=== PATIENT | female | born 1990 | race Caucasian/White ===

== ENCOUNTER 2019-11-02 05:59 | Emergency (ER) | payer OTHER, SELFPAY ==
--- NOTE | 2019-11-02 06:43 | EDPHYS ---
Physician Documentation [facility] Name: Tenisha Blanca Age: 29 yrs Sex: Female : 1990 Arrival Date: 11/02/2019 Time: 06:01 Bed 7 Private MD: ED Physician Pato Ricks HPI: 11/02 06:13 This 29 yrs old Female presents to ER via Ambulatory with complaints of Back kb Pain, Chest Tightness. 06:13 The patient or guardian reports chest pain that is located primarily in the chest kb diffusely. The pain radiates to back. Associated signs and symptoms: The patient has no apparent associated signs or symptoms. The chest pain is described as tightness. Duration: The patient or guardian reports a single episode, that is now resolved, that lasted 10 minute(s). Modifying factors: The symptoms are alleviated by nothing. the symptoms are aggravated by nothing. Severity of pain: At its worst the pain was mild in the emergency department the pain has resolved. The patient has not experienced similar symptoms in the past. The patient has not recently seen a physician. 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 Reports symptoms lasted for 10 minutes and now are completely resolved. States "I just wanted to make sure everything was ok before I went in to work.". 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 - Social history:: Smoking status: Patient denies any tobacco usage or history of. - Ebola Screening: : No symptoms or risks identified at this time. ROS: 06:10 Constitutional: Negative for fever, chills, and weight loss, ENT: Negative for injury, kb pain, and discharge, Neck: Negative for injury, pain, and swelling, Cardiovascular: Negative for chest pain, palpitations, and edema, Respiratory: Negative for shortness of breath, cough, wheezing, and pleuritic chest pain, Abdomen/GI: Negative for abdominal pain, nausea, vomiting, diarrhea, and constipation, Back: Negative for injury and pain, MS/Extremity: Negative for injury and deformity, Skin: Negative for injury, rash, and discoloration, Neuro: Negative for headache, weakness, numbness, tingling, and seizure. Exam: 06:10 Constitutional: This is a well developed, well nourished patient who is awake, alert, kb and in no acute distress. Head/Face: Normocephalic, atraumatic. ENT: Nares patent. No nasal discharge, no septal abnormalities noted. Tympanic membranes are normal and external auditory canals are clear. Oropharynx with no redness, swelling, or masses, exudates, or evidence of obstruction, uvula midline. Mucous membranes moist. Neck: Trachea midline, no thyromegaly or masses palpated, and no cervical lymphadenopathy. Supple, full range of motion without nuchal rigidity, or vertebral point tenderness. No Meningismus. Chest/axilla: Normal chest wall appearance and motion. Nontender with no deformity. No lesions are appreciated. Cardiovascular: Regular rate and rhythm with a normal S1 and S2. No gallops, murmurs, or rubs. Normal PMI, no JVD. No pulse deficits. Respiratory: Lungs have equal breath sounds bilaterally, clear to auscultation and percussion. No rales, rhonchi or wheezes noted. No increased work of breathing, no retractions or nasal flaring. Abdomen/GI: Soft, non-tender, with normal bowel sounds. No distension or tympany. No guarding or rebound. No evidence of tenderness throughout. Back: No spinal tenderness. No costovertebral tenderness. Full range of motion. Skin: Warm, dry with normal turgor. Normal color with no rashes, no lesions, and no evidence of cellulitis. MS/ Extremity: Pulses equal, no cyanosis. Neurovascular intact. Full, normal range of motion. Neuro: Awake and alert, GCS 15, oriented to person, place, time, and situation. Cranial nerves II-XII grossly intact. Motor strength 5/5 in all extremities. Sensory grossly intact. Cerebellar exam normal. Normal gait. 06:43 ECG was reviewed by the Attending Physician. kb Vital Signs: 06:09 BP 142 / 95; Pulse 66; Resp 16; Temp 98.6; Pulse Ox 100% ; Weight 108.86 kg; Height 5 rv ft. 10 in. (177.80 cm); Pain 0/10; 07:14 BP 137 / 89; Pulse 75; Resp 16; Temp 98.6; Pulse Ox 100% ; bp 06:09 Body Mass Index 34.44 (108.86 kg, 177.80 cm) rv MDM: 06:03 Patient medically screened. kb 06:09 Data reviewed: vital signs, nurses notes. Data interpreted: Pulse oximetry: on room air kb is 100 %. Interpretation: normal. Counseling: I had a detailed discussion with the patient and/or guardian regarding: the historical points, exam findings, and any diagnostic results supporting the discharge/admit diagnosis, radiology results, the need for outpatient follow up, a family practitioner, to return to the emergency department if symptoms worsen or persist or if there are any questions or concerns that arise at home. 11/02 06:03 Order name: Chest Pa And Lat (2 Views) XRAY kb 11/02 06:03 Order name: EKG - Nurse/Tech; Complete Time: 06:11 kb EC:43 Rate is 64 beats/min. Rhythm is regular, Normal Sinus Rhythm. QRS [place] is Normal. [place] kb interval is normal at 190 msec. QRS interval is normal at 92 msec. QT interval is normal at 398 msec. Interpreted by me. Reviewed by me. Administered Medications: No medications were administered Disposition: Co-signature as Attending Physician, Pato Ricks MD I agree with the assessment and [facility] plan of care. Disposition: 11/02/19 06:42 Discharged to Home. Impression: Chest pain, unspecified. - Condition is Stable. - Discharge Instructions: Nonspecific Chest Pain, [id number]. - Work release form, Medication Reconciliation Form, Thank You Letter, Antibiotic Education, Prescription Opioid Use form. - Follow up: Emergency Department; When: As needed; Reason: Worsening of condition. Follow up: Private Physician; When: 2 - 3 days; Reason: Recheck today's complaints, Continuance of care, Re-evaluation by your physician. Signatures: Dispatcher [employer] Marialuisa Santacruz, Pato Hartman MD MD cha Peltier, Brian, RN RN bp Renan Abernathy, RN RN rv Corrections: (The following items were deleted from the chart) 07:16 06:42 11/02/2019 06:42 Discharged to Home. Impression: Chest pain, unspecified. bp Condition is Stable. Forms are Medication Reconciliation Form, Thank You Letter, Antibiotic Education, Prescription Opioid Use. Follow up: Emergency Department; When: As needed; Reason: Worsening of condition. Follow up: Private Physician; When: 2 - 3 days; Reason: Recheck today's complaints, Continuance of care, Re-evaluation by your physician. kb
--- NOTE | 2019-11-02 06:43 | ER ---
Nurse's Notes 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 Transition of care: patient was not received from another setting of care. Onset of symptoms was November 02, 2019 at 05:30. Risk Assessment: Do you want to hurt yourself or someone else? Patient reports no desire to harm self or others. Initial Sepsis Screen: Does the patient meet any 2 criteria? No. Patient's initial sepsis screen is negative. Does the patient have a suspected source of infection? No. Patient's initial sepsis screen is negative. Care prior to arrival: None. 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 - Social history:: Smoking status: Patient denies any tobacco usage or history of. - Ebola Screening: : No symptoms or risks identified at this time. Screenin:11 Abuse screen: Denies threats or abuse. Denies injuries from another. Nutritional rv screening: No deficits noted. Tuberculosis screening: No symptoms or risk factors identified. Fall Risk None identified. Assessment: 06:11 General: Appears in no apparent distress. Behavior is calm, cooperative. Pain: Denies rv pain. Neuro: Level of Consciousness is awake, alert, obeys commands, Oriented to person, place, time, situation. Cardiovascular: Patient's skin is warm and dry. Respiratory: Airway is patent. Derm: Skin is intact. 07:14 Reassessment: PT D/C HOME AMBULATORY WITH FAMILY, DX WITH UNSPECIFIED CHEST PAIN. bp Vital Signs: 06:09 BP 142 / 95; Pulse 66; Resp 16; Temp 98.6; Pulse Ox 100% ; Weight 108.86 kg; Height 5 rv ft. 10 in. (177.80 cm); Pain 0/10; 07:14 BP 137 / 89; Pulse 75; Resp 16; Temp 98.6; Pulse Ox 100% ; bp 06:09 Body Mass Index 34.44 (108.86 kg, 177.80 cm) rv ED Course: 06:01 Patient arrived in ED. cl3 06:02 Marialuisa Gonzalez F[facility]-C is [facility]. kb 06:02 Pato Ricks MD is Attending Physician. kb 06:08 Renan Abernathy, RN is Primary Nurse. rv 06:09 Triage completed. rv 06:10 Arm band placed on Patient placed in the treatment room, on a stretcher, Patient rv notified of wait time. 06:11 Patient has correct armband on for positive identification. property assessment monitor on. Pulse rv ox on. NIBP on. 06:16 Chest Pa And Lat (2 Views) XRAY In Process Unspecified. EDMS 07:08 Toy Dinero, RN is Primary Nurse. bp 07:14 No provider procedures requiring assistance completed. Patient did not have IV access bp during this emergency room visit. Administered Medications: No medications were administered Outcome: 06:42 Discharge ordered by MD. kb 07:15 Discharged to home ambulatory, with family. bp 07:15 Condition: stable 07:15 Discharge instructions given to patient, Instructed on discharge instructions, follow up and referral plans. Demonstrated understanding of instructions, follow-up care. 07:16 Patient left the ED. bp Signatures: Dispatcher [employer] EDMS Marialuisa Gonzalez FNP-C FNP-Deepakb Toy Dinero, RN RN bp Renan Abernathy, RN RN Ej Kirkland cl3
[2019-11-02 07:23] VITALS: TEMP 98.6; O2SAT 100
[2019-11-02 07:24] VITALS: BP 137/89
--- NOTE | 2019-11-02 09:20 | RAD REPORT ---
EXAM DESCRIPTION: RAD - Chest Pa And Lat (2 Views) - 11/02/2019 6:18 am CLINICAL HISTORY: CHEST PAIN Chest pain. COMPARISON: No comparisons FINDINGS: The lungs are clear. The heart is normal in size. No displaced fractures. IMPRESSION: No acute or concerning finding suspected.
--- NOTE | 2019-11-02 14:32 | EKG ---
Test Date: 2019-11-02 Test Time: 06:41:53 Product Support Representative: JOSE MEASUREMENT RESULTS: Intervals: Rate: 64 OK: 190 QRSD: 92 QT: 398 QTc: 410 [place]: P: 52 OK: 190 QRS: 40 T: 42 INTERPRETIVE STATEMENTS: Normal sinus rhythm Normal ECG No previous ECG available for comparison Electronically Signed On 11-02-19 14:31:12 WARD SERVICE SUPERVISOR by Vinny Vance
== END 2019-11-02 07:16 | disposition home or self-care (01) ==
LOC: ER 05:59
DX: R07.9 Chest pain, unspecified (principal)
CPT/HCPCS: 71046; 93005; 99284

== ENCOUNTER 2022-05-06 17:18 | Emergency (ER) | payer BC ==
[2022-05-06 19:03] LABS: Absolute Lymphocytes (CBC) 2.4 K/uL (0.7-4.9); Lymphocytes % 27.3 % (15.3-44.8); MCV 93.7 fL (80-100); MPV 9.3 fL (7.6-11.3); RBC Red Blood Cell Count 4.48 M/uL (3.86-4.86)
[2022-05-06] MEDS ORDERED: NA CHLORIDE 0.9% 1,000 ML ONE (19:44)
[2022-05-06 19:50] LABS: Urine Blood 3+ (Negative); Urine Glucose Negative (Negative); Urine Protein Negative (Negative); Urine pH 6.5 (5.0-7.0)
[2022-05-06 19:56] LABS: Urine Bacteria <20 /HPF (<20); Urine RBC 21-50 /HPF (None Seen)
[2022-05-06 19:57] LABS: Urine Mucus 2+ /HPF (None Seen)
--- NOTE | 2022-05-06 21:06 | ER ---
Nurse's Notes [facility] Name: Tenisha Blanca Age: 32 yrs Sex: Female : 1990 Arrival Date: 05/06/2022 Time: 17:21 Bed 28 Private MD: Maddie Miller Diagnosis: Near syncope Presentation: 05/06 18:19 Chief complaint: Patient states: last night my eye sight started going black , I get iw real sweaty and shaky and my knees start buckling, I go to Dr. Mejia for iron and sometimes I get blood and I have huge bruises on my legs since last weekend , and I have a horrible headache. Coronavirus screen: At this time, the client does not indicate any symptoms associated with coronavirus-19. Ebola Screen: Patient negative for fever greater than or equal to 101.5 degrees Fahrenheit, and additional compatible Ebola Virus Disease symptoms Patient denies exposure to infectious person. Patient denies travel to an Ebola-affected area in the 21 days before illness onset. No symptoms or risks identified at this time. Initial Sepsis Screen: Does the patient meet any 2 criteria? No. Patient's initial sepsis screen is negative. Does the patient have a suspected source of infection? No. Patient's initial sepsis screen is negative. Risk Assessment: Do you want to hurt yourself or someone else? Patient reports no desire to harm self or others. Onset of symptoms was April 28, 2022. 18:19 Method Of Arrival: Ambulatory iw 18:19 Acuity: GUY 3 iw Historical: - Allergies: 18:21 No Known Allergies; iw - Home Meds: 18:21 None [Active]; iw - PMHx: 18:21 Asthma; Anemia; iw - PSHx: 18:21 weight loss surgery; iw - Immunization history:: Adult Immunizations up to date. - Family history:: not pertinent. - Hospitalizations: : No recent hospitalization is reported. Screenin:00 Abuse screen: Denies threats or abuse. Denies injuries from another. Nutritional lg3 screening: No deficits noted. Tuberculosis screening: No symptoms or risk factors identified. Fall Risk None identified. Assessment: 20:00 General: Appears in no apparent distress. comfortable, Behavior is calm, cooperative. lg3 Pain: Denies pain. Neuro: No deficits noted. Level of Consciousness is awake, alert, obeys commands, Oriented to person, place, time, situation, Reports blurred vision dizziness, weakness. Cardiovascular: No deficits noted. Denies chest pain, shortness of breath, Capillary refill < 3 seconds Clubbing of nail beds is absent JVD is absent Patient's skin is warm and dry. Respiratory: No deficits noted. Airway is patent Trachea midline Respiratory effort is even, unlabored, Respiratory pattern is regular, symmetrical, Breath sounds are clear bilaterally. GI: No deficits noted. No signs and/or symptoms were reported involving the gastrointestinal system. Abdomen is round non-distended, Bowel sounds present X 4 quads. Abd is soft and non tender X 4 quads. : No deficits noted. No signs and/or symptoms were reported regarding the genitourinary system. EENT: No deficits noted. Derm: No deficits noted. No signs and/or symptoms reported regarding the dermatologic system. Skin is intact, is healthy with good turgor, Skin is dry, Skin temperature is warm. Musculoskeletal: No deficits noted. Reports generalized weakness. 21:02 Reassessment: Patient appears in no apparent distress at this time. No changes from lg3 previously documented assessment. Patient and/or family updated on plan of care and expected duration. Pain level reassessed. Patient is alert, oriented x 3, equal unlabored respirations, skin warm/dry/pink. Patient states symptoms have improved. Vital Signs: 18:19 BP 131 / 74; Pulse 69; Resp 16; Temp 98.4; Pulse Ox 100% on R/A; Weight 122.47 kg; iw Height 5 ft. 9 in. (175.26 cm); 21:22 BP 138 / 72; Pulse 74; Resp 17 S; Pulse Ox 100% on R/A; lg3 18:19 Body Mass Index 39.87 (122.47 kg, 175.26 cm) iw ED Course: 17:21 Patient arrived in ED. as 17:21 Maddie Miller is Private Physician. as 18:21 Triage completed. iw 18:22 Arm band placed on. iw 18:57 Prakash Ji MD is Attending Physician. rn 18:57 Initial lab(s) drawn, by me, sent to lab. Inserted saline lock: 22 gauge in left jw7 antecubital area, using aseptic technique. Blood collected. Missed attempt(s): 20 gauge in right antecubital area. Bleeding controlled, band aid applied, catheter tip intact. 18:58 CBC with Diff Sent. jw7 18:58 Basic Metabolic Panel Sent. jw7 19:45 Meli Gaytan, RN is Primary Nurse. lg3 19:51 Urine Microscopic Only Sent. lg3 19:51 SARS-COV-2 RT PCR (Document "Date of Onset" if Symptomatic) Sent. lg3 19:51 [place] Screen Profile Sent. lg3 20:00 Patient has correct armband on for positive identification. Bed in low position. Call lg3 light in reach. Side rails up X 1. Client placed on continuous cardiac and pulse oximetry monitoring. NIBP monitoring applied. Door closed. Noise minimized. Warm blanket given. 21:22 No provider procedures requiring assistance completed. IV discontinued, intact, lg3 bleeding controlled, No redness/swelling at site. Pressure dressing applied. Administered Medications: 19:40 Drug: NS 0.9% 1000 ml Route: IV; Rate: 1000 ml; Site: left antecubital; iw 21:23 Follow up: IV Status: Completed infusion; IV Intake: 1000ml lg3 Medication: 21:23 VIS not applicable for this client. lg3 Intake: 21:23 IV: 1000ml; Total: 1000ml. lg3 Outcome: 21:05 Discharge ordered by . rn 21:22 Discharged to home ambulatory. lg3 21:22 Condition: stable 21:22 Discharge instructions given to patient, Instructed on discharge instructions, follow up and referral plans. Demonstrated understanding of instructions, follow-up care. 21:23 Patient left the ED. lg3 Signatures: Nieves Ibarra Irene, RN RN Prakash Ji MD MD rn Gibson, Lacie, RN RN 3 Holly Carrillo [facility] Corrections: (The following items were deleted from the chart) 18:22 18:19 Resp 16bpm; Pulse Ox 100% RA; Temp 98.4F; iw iw
--- NOTE | 2022-05-06 21:06 | EDPHYS ---
Physician Documentation [facility] Name: Tenisha Blanca Age: 32 yrs Sex: Female : 1990 Arrival Date: 05/06/2022 Time: 17:21 Bed 28 Private MD: Maddie Miller ED Physician Prakash Ji HPI: 05/06 19:55 This 32 yrs old Female presents to ER via Ambulatory with complaints of near syncope. rn 19:55 The patient has experienced near-syncope, almost passed out, felt dizzy, felt faint, rn felt generally weak. Onset: The symptoms/episode began/occurred yesterday. Duration: The patient has had multiple episodes. Associated injury: The patient did not suffer any apparent associated injury. Associated signs and symptoms: Pertinent positives: dizziness, headache, lightheadedness, Pertinent negatives: abdominal pain, chest pain, seizure, shortness of breath. 19:56 Current symptoms: Currently, the patient is not experiencing any symptoms. The patient rn has not experienced similar symptoms in the past. The patient has not recently seen a physician. Pt reports 2 episodes of feeling lightheaded, almost passed out, lasted more a few minutes, resolved on its own. Brooks lightheaded and sweating, felt like might be low blood sugar and got better after eating something. Happened again today at work, had eaten something already, so ruled out low blood sugar. Feels better now. Reports annual visits with Dr. Mejia for "low iron". Attributed in past to heavy periods and gastric surgery. Reports iron infusions in past. Light menstrual period currently. No chest pain or sob. No blood in stool. . Historical: - Allergies: 18:21 No Known Allergies; iw - Home Meds: 18:21 None [Active]; iw - PMHx: 18:21 Asthma; Anemia; iw - PSHx: 18:21 weight loss surgery; iw - Immunization history:: Adult Immunizations up to date. - Family history:: not pertinent. - Hospitalizations: : No recent hospitalization is reported. ROS: 19:56 Constitutional: Negative for fever, chills, and weight loss, Eyes: Negative for injury, rn pain, redness, and discharge, ENT: Negative for injury, pain, and discharge, Neck: Negative for injury, pain, and swelling, Cardiovascular: Negative for chest pain, palpitations, and edema, Respiratory: Negative for shortness of breath, cough, wheezing, and pleuritic chest pain, Abdomen/GI: Negative for abdominal pain,vomiting, and constipation, Back: Negative for injury and pain, : Negative for injury, bleeding, discharge, and swelling, MS/Extremity: Negative for injury and deformity, Skin: Negative for injury, rash, and discoloration, Neuro: Negative for numbness, tingling, and seizure. Exam: 19:56 Constitutional: This is a well developed, well nourished patient who is awake, alert, rn and in no acute distress. Ambulatory from lobby to room without assistance or difficulty. Head/Face: Normocephalic, atraumatic. Eyes: Periorbital areas with no swelling, redness, or edema. ENT: dry MM Neck: Trachea midline, no thyromegaly or masses palpated, and no cervical lymphadenopathy. Supple, full range of motion without nuchal rigidity, or vertebral point tenderness. No Meningismus. Cardiovascular: Regular rate and rhythm. No pulse deficits. Respiratory: Speaking full sentences, unlabored. No increased work of breathing, no retractions or nasal flaring. Abdomen/GI: Soft, non-tender Skin: Warm, dry MS/ Extremity: Pulses equal, no cyanosis. Neuro: Awake and alert, GCS 15, oriented. Motor strength 5/5 in all extremities. Cerebellar exam normal. Normal gait. 21:02 ECG was reviewed by the Attending Physician. rn Vital Signs: 18:19 BP 131 / 74; Pulse 69; Resp 16; Temp 98.4; Pulse Ox 100% on R/A; Weight 122.47 kg; iw Height 5 ft. 9 in. (175.26 cm); 21:22 BP 138 / 72; Pulse 74; Resp 17 S; Pulse Ox 100% on R/A; lg3 18:19 Body Mass Index 39.87 (122.47 kg, 175.26 cm) iw MDM: 18:57 Patient medically screened. rn 21:03 Differential Diagnosis: vasovagal episode, COVID, MONO, UTI, anemia, thrombocytopenia, rn arrythmia, hypoglyemia. Data reviewed: vital signs, nurses notes, lab test result(s), EKG, and as a result, I will discharge patient. Counseling: I had a detailed discussion with the patient and/or guardian regarding: the historical points, exam findings, and any diagnostic results supporting the discharge/admit diagnosis, lab results, the need for outpatient follow up, to return to the emergency department if symptoms worsen or persist or if there are any questions or concerns that arise at home. Response to treatment: the patient's symptoms have resolved after treatment, the patient's condition has returned to base line, and as a result, I will discharge patient. Special discussion: I discussed with the patient/guardian in detail that at this point there is no indication for admission to the hospital. It is understood, however, that if the symptoms persist or worsen the patient needs to return immediately for re-evaluation. ED course: Pt with glucose 65, up to 102 after eating, not on hyperglycemic medication, no other acute findings on blood or ECG, normal vitals. Normal exam. Will dc home with instructions for regular eating/meals and pcp f/u.. 05/06 18:23 Order name: CBC with Diff; Complete Time: 19:15 [facility] 05/06 18:23 Order name: Basic Metabolic Panel; Complete Time: 19:25 [facility] 05/06 19:16 Order name: [place] Screen Profile; Complete Time: 20:07 05/06 19:16 Order name: SARS-COV-2 RT PCR (Document "Date of Onset" if Symptomatic); Complete Time: rn 20:53 05/06 19:16 Order name: Urine Microscopic Only; Complete Time: 20:07 05/06 19:51 Order name: Urine Dipstick-Ancillary; Complete Time: 20:07 [facility] 05/06 19:16 Order name: EKG; Complete Time: 19:18 05/06 19:16 Order name: EKG - Nurse/Tech; Complete Time: 21:03 05/06 19:16 Order name: Urine Dipstick-Ancillary (obtain specimen); Complete Time: 19:51 05/06 19:16 Order name: Urine Test (obtain specimen); Complete Time: 19:51 05/06 19:56 Order name: Urine --Ancillary (enter results) [facility] 05/06 20:08 Order name: Glucose, Ancillary Testing; Complete Time: 20:18 [facility] 05/06 21:14 Order name: Glucose, Ancillary Testing [facility] 05/06 20:07 Order name: Glucose Level; Complete Time: 21:02 05/06 20:07 Order name: PO challenge; Complete Time: 21:02 rn EC:02 Rate is 73 beats/min. Rhythm is regular. QRS [place] is Normal. [place] interval is normal. QRS rn interval is normal. QT interval is normal. No Q waves. T waves are Normal. No ST changes noted. Clinical impression: Normal ECG. Interpreted by me. Reviewed by me. Administered Medications: 19:40 Drug: NS 0.9% 1000 ml Route: IV; Rate: 1000 ml; Site: left antecubital; 21:23 Follow up: IV Status: Completed infusion; IV Intake: 1000ml lg3 Disposition Summary: 05/06/22 21:05 Discharge Ordered Location: Home rn Problem: new rn Symptoms: have improved rn Condition: Stable rn Diagnosis - Near syncope rn Followup: rn - With: Private Physician - When: As needed - Reason: Recheck today's complaints, Re-evaluation by your physician Discharge Instructions: - Discharge Summary Sheet rn - Hypoglycemia rn - Near-Syncope rn - Preventing Hypoglycemia rn Forms: - Medication Reconciliation Form rn - Thank You Letter rn - Antibiotic planning rn - Prescription Opioid Use rn Signatures: Dispatcher [employer] Trish Macdonald, RN RN Prakash Polo MD MD rn Gibson, Lacie, RN RN lg3
[2022-05-06 23:05] VITALS: TEMP 98.4; O2SAT 100
[2022-05-06 23:07] VITALS: BP 138/72
--- NOTE | 2022-05-07 15:20 | EKG ---
Test Date: 2022-05-06 Test Time: 20:59:57 [employer]: MEASUREMENT RESULTS: Intervals: Rate: 73 [place]: 192 QRSD: 92 QT: 394 QTc: 434 [place]: P: 34 [place]: 192 QRS: 56 T: 43 INTERPRETIVE STATEMENTS: Normal sinus rhythm Normal ECG Compared to ECG 11/02/2019 06:41:53 No significant changes Electronically Signed On 05-07-22 15:18:45 CDT by Gordon Viera
== END 2022-05-06 21:23 | disposition home or self-care (01) ==
LOC: ER 17:18
DX: R55 Syncope and collapse (principal); Z20.822 Contact with and (suspected) exposure to COVID-19
CPT/HCPCS: 96361; 93005; 85025; 80048; 36415; 86308; 81025; 82947 ×2; 96360; 99283; U0003; J7030; 81003; 81015